=== PATIENT | female | born 1980 | race Caucasian/White ===

== ENCOUNTER 2016-10-05 07:08 | Observation (INO) | payer OTHER ==
[2016-02-15 07:57] VITALS: BMI 40.2
[2016-10-05] MEDS ORDERED: CEFAZOLIN 1 GM VIAL ONE (07:26)
[2016-10-05 07:39] LABS: MPV 7.9 fL (7.4-10.4)
[2016-10-05] MEDS ORDERED: hydrALAZINE 20 MG/ML VIAL IV PRN (07:46)
[2016-10-05] MEDS ORDERED: ONDANSETRON HCL 4 MG/2 ML VIAL IV PRN ×2 (07:46→10:13)
[2016-10-05] MEDS ORDERED: HYDROmorphone 1 MG INJECTION IV PRN ×2 (07:46)
[2016-10-05] MEDS ORDERED: PROMETHAZINE 25 MG/ML VIAL IV PRN ×2 (07:46)
[2016-10-05] MEDS ORDERED: MEPERIDINE 25 MG/ML TUBEX IV PRN (07:46)
[2016-10-05] MEDS ORDERED: ONDANSETRON HCL 4 MG ODT TAB PO PRN (07:46)
[2016-10-05] MEDS ORDERED: FENTANYL 100 MCG/2 ML VIAL IV PRN (07:46)
[2016-10-05] MEDS ORDERED: LABETALOL 20 MG/4 ML SYRINGE IV PRN (07:46)
--- NOTE | 2016-10-05 07:47 | SC.ANESPOS ---
[id number], Hemodynamically Stable, Pain Control Adequate Phase I & II Recovery Complete: Yes Apparent Anesthesia Complication: No : N - Vital Signs Blood Pressure: 126/70 Pulse: 57 Resp Rate: 18 O2 Sat: 96 Temp: 98.1 F
[2016-10-05] MEDS ORDERED: BUPIVACAINE 0.25% 30 ML VIAL ONE (07:58)
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
[2016-10-05] MEDS ORDERED: IBUPROFEN 800 MG TAB PO PRN (10:13)
[2016-10-05] MEDS ORDERED: ZOLPIDEM TARTRATE 5 MG TAB PO PRN (10:14)
--- NOTE | 2016-10-05 10:17 | HIMOPRPT ---
DATE OF PROCEDURE: DATE OF PROCEDURE: 10/05/16 PREOPERATIVE DIAGNOSIS: Symptomatic uterine fibroids. Menorrhagia. Thickened endometrium. POSTOPERATIVE DIAGNOSIS: Same PROCEDURE: TLH, bilateral salpingectomies, cystoscopy SURGEON: Gloria Dejesus MD. GAME AGENT: [Milagros]. ANESTHESIA: General Endotrachial Intubation. COMPLICATIONS: None. ESTIMATED BLOOD LOSS: 150 mL. FINDINGS: Enlarged fibroid uterus. Normal ovaries. Normal bladder on cystoscopy PROCEDURE IN DETAIL: The patient was taken to the operating room where she was prepped and draped in usual sterile fashion after general anesthesia was induced. [facility] A Robert catheter was placed. Attention was turned the abdomen where a 0.25% Marcaine was injected at the infraumbilical incision site. At this time, a trocar was inserted using the laparoscope. Attention was turned to the pelvis and the above -noted findings were seen. Next in usual fashion using Marcaine prior to the incisions a trocar was placed in the left and right lower quadrant under direct visualization without any difficulty. Next using the Harmonic scalpel. Bilateral tubal segments were removed with harmonic. The utero-ovarian ligaments were transected and transection was carried down to the uterine arteries. The uterine arteries were skeletonized and transected. The bladder flap was created. A sponge stick was placed in the vagina and a colpotomy performed on top of the sponge stick in the usual fashion without difficulty. In similar fashion, a posterior colpotomy was performed. Next the cardinal and uterosacral ligaments were transected using the Harmonic scalpel and the specimen was removed through the vagina. The vaginal incision was then closed laparoscopically using 0 Vicryl suture without difficulty. The pelvis was irrigated with saline and hemostasis found to be adequate. Cystoscopy was performed showing normal bladder mucosa and spillage of urine from the ostia bilaterally. The pneumoperitoneum was released. The ports removed. The incisions were closed with a 4-0 Monocryl in subcuticular fashion. Sponge laps and needle counts were correct x2. The patient tolerated well.
[2016-10-05] MEDS ORDERED: FENTANYL 100 MCG/2 ML VIAL ONE (10:30)
[2016-10-05] MEDS: FENTANYL 100 MCG/2 ML VIAL IV PRN ×2 (10:33→10:43)
[2016-10-05] MEDS ORDERED: LR 1,000 ML IV SCH (11:00)
[2016-10-05] MEDS ORDERED: NICOTINE 21 MG PATCH TOP SCH (11:00)
[2016-10-05] MEDS ORDERED: ROCURONIUM 50 MG/5 ML VIAL IV ONE (15:37)
[2016-10-05] MEDS ORDERED: NEOSTIGMINE 1 MG/1 ML (1:1000) INJ 10 ML MDV IM ONE (15:37)
[2016-10-05] MEDS ORDERED: ONDANSETRON HCL 4 MG/2 ML VIAL IV ONE (15:37)
[2016-10-05] MEDS ORDERED: GLYCOPYRROLATE 1 MG VIAL IM ONE (15:37)
[2016-10-05] MEDS ORDERED: DEXAMETHASONE 4 MG/ML VIAL IV ONE (15:37)
[2016-10-05] MEDS ORDERED: PROPOFOL 200 MG/20 ML VIAL IV ONE (15:37)
[2016-10-05] MEDS ORDERED: HYDROmorphone 2 MG/ML VIAL IM ONE (15:37)
[2016-10-05] MEDS ORDERED: MIDAZOLAM 2 MG/2 ML VIAL IV ONE (15:37)
[2016-10-05] MEDS ORDERED: EPHEDrine 50 MG/ML VIAL IM ONE (15:37)
[2016-10-05] MEDS ORDERED: SODIUM CHLORIDE 0.9% 3 ML FLUSH FLUSH PRN (17:36)
--- NOTE | 2016-10-05 17:38 | OBGYNPROG ---
- Subjective Hospital Day #: 1 Post Op Day: 0 Denies: Complaints, Nausea, Vomitting Pain: Reports: None - Objective Vital Signs: Temperature: 98.1 F (10/05/16 12:59) HR: 57 (10/05/16 14:02) RR: 18 (10/05/16 14:02) BP: 122/70 (10/05/16 14:02) Pulse Ox: 99 (10/05/16 14:02) GENERAL: Alert, Oriented, No Acute Distress HEENT: Normal CARDIOVASCULAR/CHEST: Normal ABDOMEN: Bowel Sounds Present, Soft INCISION: Incision Clean/Dry/Intact OBGYN Progress Note - PLAN Routine Post Op Care
--- NOTE | 2016-10-05 17:39 | PCM.DCS92 ---
- Primary/Secondary Discharge Diagnoses (1) Fibroids Acute D25.9 - LEIOMYOMA OF UTERUS, UNSPECIFIED U (2) Menorrhagia Acute N92.0 - EXCESSIVE AND FREQUENT MENSTRUATION WITH REGULAR CYCLE M (3) Endometrial polyp Acute N84.0 - POLYP OF CORPUS UTERI - HOSPITAL COURSE Routine postop, cath removed and able to void, remained afebrile. /Op Complications: None - DISCHARGE INSTRUCTIONS Discharge Disposition: Home Discharge Condition: Good Cognitive Discharge Status: Unimpaired Fuctional Discharge Status: Independent Patient Leaving with Prescriptions?: Yes Home Medications/ New Prescriptions: New Ibuprofen Tablet [Motrin] 800 mg PO TID #30 tab Oxycodone Immediate Release [Oxycodone Immediate Release Tablet] 5 mg PO Q4H PRN #30 tab PRN Reason: Pain No Action Atenolol [Tenormin] 50 mg PO DAILY Hydrochlorothiazide 12.5 mg PO DAILY Ibuprofen 200 - 600 mg PO Q4-6H PRN PRN Reason: Pain Diphenhydramine HCl [Benadryl Allergy] 25 mg PO Q6 PRN PRN Reason: Allergy Symptoms - Diet Diet at Discharge: Regular - Activity Activity: No Heavy Lifting, Pelvic Rest, No Driving No Driving for: 2 weeks - Instructions Call Physician for: Sudden/Sever Chest Pain, Foul Smelling Discharge, Pain/ Redness in Calf/Leg, Temperature Above 100.4, Vaginal Bleeding, Drainiage from Wound - DC Summary Notes Discharge Medications: *See "Discharge Medication List" for a complete list of Home Medications and Discharge Medications.*
[2016-10-05] MEDS ORDERED: SODIUM CHLORIDE 0.9% 3 ML FLUSH FLUSH SCH (18:00)
[2016-10-05] MEDS: OXYCODONE HCL 5 MG TABLET PO PRN (20:14)
[2016-10-06] MEDS: OXYCODONE HCL 5 MG TABLET PO PRN ×2 (00:13→05:58)
[2016-10-06 05:57] VITALS: BP 121/58; PULSE 97; TEMP 98.2
[2016-10-06 07:30] LABS: AUTOMATED BASOPHIL 0.7 % (0-2); AUTOMATED EOSINOPHIL 0.6 % (0-5); AUTOMATED LYMPH 21.4 % (17-44); AUTOMATED MONOCYTE 3.7 % (3-10); AUTOMATED NEUTROPHIL 73.6 % (45-76); MPV 8.2 fL (7.4-10.4)
--- NOTE | 2016-10-06 08:04 | OBGYNPROG ---
- Subjective Hospital Day #: 2 Post Op Day: 1 Reports: Gas Pains, Tolerating Regular Diet, Passing Flatus, Voiding Freely. Denies: Nausea, Vomitting Pain: Reports: Well Managed, Abdominal - Objective Vital Signs: Temperature: 98.2 F (10/06/16 05:55) HR: 97 (10/06/16 05:55) RR: 16 (10/06/16 05:55) BP: 121/58 (10/06/16 05:55) Pulse Ox: 97 (10/06/16 05:55) Laboratory Results - last 24 hr 10/05/16 10/06/16 07:25 06:10 WBC 13.1 H RBC 4.76 Hgb 14.3 Hct 41.4 MCV 87 MCH 30.0 MCHC 34.5 RDW 14.0 Plt Count 282 MPV 8.2 Neut % (Auto) 73.6 Lymph % (Auto) 21.4 [place] % (Auto) 3.7 Eos % (Auto) 0.6 Baso % (Auto) 0.7 Absolute Neuts (auto) 9.56 H Absolute Lymphs (auto) 2.75 Blood Type A POSITIVE Antibody Screen Negative GENERAL: Alert, Oriented, No Acute Distress HEENT: Normal CARDIOVASCULAR/CHEST: Normal ABDOMEN: Soft INCISION: Incision Clean/Dry/Intact BLADDER: Voiding & Emptying Vaginal Bleeding: None MUSCULOSKELETAL: Normal EXTERMITIES: Moves All Extremeties. negative: Edema OBGYN Progress Note - ASSESSMENT (1) Fibroids Status: Acute Code(s): D25.9 - LEIOMYOMA OF UTERUS, UNSPECIFIED Qualifiers: Uterine leiomyoma location: U (2) Menorrhagia Status: Acute Code(s): N92.0 - EXCESSIVE AND FREQUENT MENSTRUATION WITH REGULAR CYCLE Qualifiers: Menorrahagia type: M (3) Endometrial polyp Status: Acute Code(s): N84.0 - POLYP OF CORPUS UTERI - PLAN Routine Post Op Care, Discharge
== END 2016-10-06 08:31 | disposition home or self-care (01) ==
LOC: SDC 07:08 → MASU 11:02
PROVIDERS: ADMIT Obstetrics & Gynecology; ATTEND Obstetrics & Gynecology
PROC: 0UT74ZZ Resection of Bilateral Fallopian Tubes, Percutaneous Endoscopic Approach (ICD-10-PCS; 2016-10-05)
PROC: 0UT94ZZ Resection of Uterus, Percutaneous Endoscopic Approach (ICD-10-PCS; principal; 2016-10-05 08:20)
PROC: 0UTC4ZZ Resection of Cervix, Percutaneous Endoscopic Approach (ICD-10-PCS; 2016-10-05 08:20)
DX: N92.0 Excessive and frequent menstruation with regular cycle (principal); N84.0 Polyp of corpus uteri; N83.8 Other noninflammatory disorders of ovary, fallopian tube and broad ligament; D25.9 Leiomyoma of uterus, unspecified; R93.8 Abnormal findings on diagnostic imaging of other specified body structures; I10 Essential (primary) hypertension; Z79.899 Other long term (current) drug therapy; E66.9 Obesity, unspecified
CPT/HCPCS: 58571; 85025; 85027; 86850; 86900; 86901; G0237; G0378; J0690; J1100; J1170; J2250; J2405; J2710; J3010; J3490; S0020